=== PATIENT | female | born 1995 | race Two or more races ===

== ENCOUNTER 2019-05-07 10:09 | Emergency (ER) | payer OTHER ==
[2019-05-07 10:32] VITALS: BMI 24.7
--- NOTE | 2019-05-07 11:09 | PDOC ---
History of Present Illness - General Chief Complaint: Pain, Acute Stated Complaint: ABDOMINAL PAIN Time Seen by Provider: 05/07/19 10:57 - History of Present Illness Initial Comments: 05/07/19 11:24 The patient is a 23 year old female with no significant reported PMH presents with 1-1/2 weeks of abdominal pain and constipation. For the past 7-10 days patient has been experiencing LUQ cramping with bowel movements. This morning pain radiated to her suprapubic region prompting her to come to the ED. Patient 's last normal bowel movement was 3 days previous and since that time she has only passed small pellets of stool. No noted rectal bleeding, nausea/vomiting or fevers/chills. Normally patient has 4 bowel movements daily. Notes she has had limited PO fluid intake for the last few days and her meals mostly consist of chicken with a tomato/cucumber salad. 10 point ROS is negative including no chest pain, no shortness of breath, no dysuria/hematuria or increased urgency/frequency. Allergy: Amoxicillin, Penicillin Surgical: L wrist PMD: None - states she is in the process of establishing primary care, decline referral to [facility] clinic Past History - Past Medical History Allergies/Adverse Reactions: Allergies Allergy/AdvReac Type Severity Reaction Status Date / Time amoxicillin Allergy Verified 05/07/19 10:28 Penicillins Allergy Verified 05/07/19 10:28 COPD: No - Surgical History Neurologic Surgery: Yes (titanium plate) - Suicide/Smoking/Psychosocial Hx Smoking History: Current some day smoker Information on smoking cessation initiated: No Hx Alcohol Use: No Drug/Substance Use Hx: (marijuana) Review of Systems - Review of Systems Constitutional: No: Chills, Fever HEENTM: No: Recent change in vision Respiratory: No: Cough, Shortness of Breath Cardiac (ROS): No: Chest Pain, Lightheadedness, Palpitations, Syncope ABD/GI: Yes: Constipated, Abdominal cramping. No: Diarrhea, Nausea, Vomiting : No: Dysuria, Hematuria *Physical Exam - Vital Signs Last Vital Signs Temp Pulse Resp BP Pulse Ox 98.1 F 78 16 125/80 99 05/07/19 10:30 05/07/19 10:30 05/07/19 10:30 05/07/19 10:30 05/07/19 10:30 - Physical Exam Comments: 05/07/19 18:40 Triage VS reviewed General: pleasant, well appearing Abdomen: soft, no TTP, (+) bowel sounds, no mass/hernia CV: S1, S2, RRR Respiratory: CLTA B/L Extremity: 2+ DP pulses, no edema/cords Neuro: A&O x3, CN II-XII intact ED Treatment Course - LABORATORY CBC & Chemistry Diagram: 05/07/19 11:30 05/07/19 11:28 Medical Decision Making - Medical Decision Making 05/07/19 12:06 23 y/o female with constipation and abdominal cramping. VS unremarkable Soft, abdomen with (+) bowel sounds Low clinical suspicion for acute abdomen including SBO or inflammatory process including colitis, gastrtitis. Will check labs, bowel regimen + fleet enema. Will withhold CTAP pending patient clinical course Reassess. 05/07/19 12:30 CBC unremarkable Patient reassessed @ bedside Now c/o dysuria w/o hematuria Will check UA 05/07/19 14:18 UA clean CMP unremarkable Patient reassessed @ bedside, symptomatically improved s/p GI cocktail. Will discharge home with primary care, GI referral. Clinical Impression: Constipation, possibly 2/2 to diet I discussed the physical exam findings, ancillary test results and final diagnoses with the patient. I answered all of the patient's questions. The patient was satisfied with the care received and felt comfortable with the discharge plan and treatment plan. The patient will return to the Emergency Department with any new, persistent or worsening symptoms. *DC/Admit/Observation/Transfer Diagnosis at time of Disposition: Constipation - Discharge Dispostion Disposition: HOME Condition at time of disposition: Good Decision to Admit order: No - Referrals - Patient Instructions Printed Discharge Instructions: Bulking Up on Fiber, Fiber Recipes, High-Fiber Diet, DI for Constipation Additional Instructions: Please use an over the counter enema and Miralax to relieve your constipation. Increase your water and fiber intake - we have provided a list of high fiber foods. Follow-up with a primary care doctor in the next one week. Your care is not complete until you are evaluated by a primary care doctor. Return to the Emergency Department for any new/worsening/concerning symptoms. - Post Discharge Activity
[2019-05-07] MEDS ORDERED: POLYETHYLENE GLYCOL 3350 119 GM BTL PO ONE (11:10)
[2019-05-07] MEDS ORDERED: SODIUM CHLORIDE 0.9% 500 ML INFUS.BAG IV ONE (11:10)
[2019-05-07] MEDS ORDERED: MINERAL OIL ENEMA 133 ML ENEMA PR ONE (11:30)
--- NOTE | 2019-05-07 11:51 | PDOC ---
Attending Attestation - Resident Resident Name: Edith Benson - ED Attending Attestation I have performed the following: I have examined & evaluated the patient, The case was reviewed & discussed with the resident, I agree w/resident's findings & plan - HPI HPI: 05/07/19 11:45 23y/o F healthy but with h/o diarrhea/constipation GI syndromes in the past presents now with about 7-10 days constipation and increasing LLQ/suprapubic discomfort with intense spasm that occurred this morning, prompting the ED visit. the episode was associated with light-headedness, nausea and sweats; otherwise no n/v/f/c/melena/brbpr. no vaginal or urinary complaints. no h/o egd/c-scopy. - Physicial Exam PE: 05/07/19 11:48 vss pending no jaundice/pallor. mmm. soft/nd. L sided discomfort to palpation without guarding/rebound. BS wnl, no cvat. - Medical Decision Making 05/07/19 11:49 23y/o F with abdominal cramping and benign exam in the setting of constipation for 7-10 days, no evidence of obstruction or focal infectious process, low suspicion for diverticulitis/colitis. not consistent with [employer]/ etiology. labs ivf bowel regimen, opts for enema at home no indication for emergent imaging if labs wnl. GI f/u
[2019-05-07 12:05] LABS: BASO % 0.7 % (0-2.0); EOS % 3.8 % (0-4.5); HEMATOCRIT 40.7 % (32.4-45.2); HEMOGLOBIN 13.4 GM/dL (10.7-15.3); LYMPH % 8.6 % (8-40); MCH 29.3 pg (25.7-33.7); MEAN CELL VOLUME 88.8 fl (80-96); MEAN PLT VOLUME 7.9 fl (7.5-11.1); MONO % 7.4 % (3.8-10.2); NEUT % 79.5 % (42.8-82.8); PLATELET COUNT 311 K/MM3 (134-434); RBC 4.58 M/mm3 (3.60-5.2); RDW 13.9 % (11.6-15.6); WHITE BLOOD COUNT 10.3 K/mm3 (4.0-10.0)
[2019-05-07 13:25] LABS: PH,URINE 6.5 (5.0-8.0); URINE APPEARANCE CLEAR; URINE BILIRUBIN NEGATIVE (NEGATIVE); URINE COLOR YELLOW; URINE GLUCOSE (UA) NEGATIVE (NEGATIVE); URINE KETONE TRACE (NEGATIVE); URINE LEUK ESTERASE NEGATIVE (NEGATIVE); URINE NITRITE NEGATIVE (NEGATIVE); URINE PROTEIN NEGATIVE (NEGATIVE); URINE UROBILINOGEN 0.2 mg/dL (0.2-1.0)
[2019-05-07 13:57] LABS: ALBUMIN 4.3 g/dl (3.4-5.0); BILIRUBIN,TOTAL 0.4 mg/dL (0.2-1); CALCIUM 9.5 mg/dL (8.5-10.1); CREATININE 0.8 mg/dL (0.55-1.3); TOT PROT 7.7 g/dl (6.4-8.2)
[2019-05-07 14:05] VITALS: BP 111/87; PULSE 69; TEMP 98.3
== END 2019-05-07 14:36 | disposition home or self-care (01) ==
LOC: JER 10:09
DX: K59.00 Constipation, unspecified (principal); Z88.0 Allergy status to penicillin; F17.200 Nicotine dependence, unspecified, uncomplicated
CPT/HCPCS: 36415; 80053; 81003; 84703; 85025; 87086; 99284-25